=== PATIENT | female | born 1945 | race Caucasian/White ===

== ENCOUNTER 2023-06-22 15:50 | Inpatient (IN) | payer MEDICARE ==
[2023-06-22 16:44] LABS: Bacteria/HPF 2+ HPF (None Seen); Bilirubin Negative (Negative); Blood, Urine 1+ (Negative); CAUTI Indications for Culture Pelvic or flank pain; Clarity Extra Turbid (Clear); Glucose, Urine (Dipstick) Normal (Negative); Ketone, Urine 20 mg/dL (Negative); Leukocyte 500 Leu/uL (Negative); Nitrite Negative (Negative); Protein, Urine (Dipstick) 50 mg/dL (Neg-Trace); RBC/HPF 0-3 HPF (0-3); Specific Gravity, Urine 1.013 (1.002-1.036); Squamous Epithelial None Seen HPF (0-3); Urobilinogen Normal mg/dL (Less than 2); WBC/HPF Greater than 50 HPF (0-3)
[2023-06-22 16:52] LABS: Urine Culture Reflex Yes Yes
[2023-06-22 18:38] LABS: #Monocytes 0.5 thou/uL (0.11-0.59); #Neutrophils 9.7 thou/uL (1.40-6.50); %Basophils 0.3 % (0.0-1.0); %Eosinophils 0.2 % (0.0-10.0); %Lymphocytes 5.5 % (21.0-51.0); %Monocytes 4.7 % (0.0-10.0); %Neutrophils 88.7 % (42.0-75.0); Hematocrit 43.3 % (36.0-47.0); Hemoglobin 14.5 g/dL (12.0-16.0); Mean Corpuscular HGB CONC 33.5 g/dL (32.0-36.0); Mean Corpuscular Hemoglobin 31.8 pg (27.0-31.0); Mean Platelet Volume 9.6 fL (7.4-10.4); Platelet Count 248 10x3/uL (130-400); RBC Distribution Width 15.5 % (11.5-14.5); Red Blood Cell (RBC) Count 4.56 mill/uL (4.20-5.40); White Blood Cell (WBC) Count 10.9 10x3/uL (4.8-10.8)
[2023-06-22 18:47] LABS: INR-International Normal Ratio 1.2; Prothrombin Time 15.5 sec (12.0-14.7)
[2023-06-22 18:48] LABS: PTT 29.8 sec (22.9-36.1)
[2023-06-22] MEDS ORDERED: Glucagon 1 MG/ML KIT IM PRN (18:51)
[2023-06-22] MEDS ORDERED: Methocarbamol 1 GM in Sodium Chloride 0.9% 100 ML IVPB PRN (18:51)
[2023-06-22] MEDS ORDERED: Dextrose 50% Abboject 50 ML SYRINGE SLOW IVP PRN (18:51)
[2023-06-22] MEDS ORDERED: Morphine 2 MG/ML VIAL SLOW IVP PRN (18:51)
[2023-06-22] MEDS ORDERED: Dextrose 5% in Water 1,000 ML IV PRN (18:51)
[2023-06-22] MEDS ORDERED: Acetaminophen 325 MG TAB PO PRN (18:51)
[2023-06-22] MEDS ORDERED: hydrALAZINE 20 MG/ML VIAL SLOW IVP PRN (18:51)
[2023-06-22] MEDS ORDERED: Ondansetron PF 4 MG/2 ML Vial IVP PRN (18:51)
[2023-06-22 19:08] LABS: ALT (SGPT) Less than 7 U/L (8-55); AST (SGOT) 18 U/L (5-34); Albumin 3.9 g/dL (3.4-4.8); Alkaline Phosphatase 89 U/L (40-110); Anion Gap 16 mmol/L (10-20); BUN (Urea Nitrogen) 25 mg/dL (9.8-20.1); Calc. Creatinine Clearance 0 mL/min (70-130); Calcium 9.2 mg/dL (7.8-10.44); Carbon Dioxide 18 mmol/L (23-31); Chloride 100 mmol/L (98-107); Estimated GFR 64; Globulin 3.1 g/dL (2.4-3.5); Glucose 119 mg/dL (83-110); Potassium 3.7 mmol/L (3.5-5.1); Sodium 130 mmol/L (136-145)
[2023-06-22] MEDS ORDERED: Famotidine/PF 20 mg/2ml Vial SLOW IVP SCH (21:00)
[2023-06-23 00:18] VITALS: BMI 22.1
[2023-06-23] MEDS ORDERED: Clindamycin/D5W 900 MG in Premix 1 BAG IVPB SCH ×2 (07:15→23:15)
[2023-06-23 09:17] LABS: #Eosinphils 0.1 thou/uL (0.0-0.7); #Monocytes 0.5 thou/uL (0.11-0.59); #Neutrophils 6.5 thou/uL (1.40-6.50); %Basophils 0.4 % (0.0-1.0); %Eosinophils 0.9 % (0.0-10.0); %Lymphocytes 13.9 % (21.0-51.0); %Monocytes 5.6 % (0.0-10.0); Hemoglobin 13.1 g/dL (12.0-16.0); Mean Corpuscular HGB CONC 33.6 g/dL (32.0-36.0); Mean Corpuscular Hemoglobin 31.7 pg (27.0-31.0); Mean Corpuscular Volume 94.4 fl (78.0-98.0); Mean Platelet Volume 9.7 fL (7.4-10.4); Platelet Count 221 10x3/uL (130-400); RBC Distribution Width 15.7 % (11.5-14.5); Red Blood Cell (RBC) Count 4.13 mill/uL (4.20-5.40); White Blood Cell (WBC) Count 8.2 10x3/uL (4.8-10.8)
[2023-06-23 09:38] LABS: ALT (SGPT) Less than 7 U/L (8-55); AST (SGOT) 18 U/L (5-34); Albumin 3.7 g/dL (3.4-4.8); Alkaline Phosphatase 80 U/L (40-110); Anion Gap 14 mmol/L (10-20); BUN (Urea Nitrogen) 31 mg/dL (9.8-20.1); Bilirubin, Total 0.9 mg/dL (0.2-1.2); Calc. Creatinine Clearance 50 mL/min (70-130); Calcium 8.8 mg/dL (7.8-10.44); Carbon Dioxide 24 mmol/L (23-31); Chloride 98 mmol/L (98-107); Estimated GFR 66; Globulin 2.9 g/dL (2.4-3.5); Glucose 99 mg/dL (83-110); Potassium 3.6 mmol/L (3.5-5.1); Protein, Total 6.6 g/dL (5.8-8.1); Sodium 132 mmol/L (136-145)
[2023-06-23] MEDS ORDERED: Clindamycin/D5W 900 mg/50 ml Premix Bag ONE (13:49)
[2023-06-23] MEDS ORDERED: Phenylephrine 40 MG/NS 250 ML 250 ML ONE (13:52)
[2023-06-23] MEDS ORDERED: PROPOFOL 20 ML ONE (13:54)
[2023-06-23] MEDS ORDERED: Lidocaine 2% PF 5 ML VIAL ONE (13:54)
[2023-06-23] MEDS ORDERED: CEFAZOLIN 1 GM VIAL ONE (14:05)
[2023-06-23] MEDS ORDERED: fentaNYL 50 mcg/mL 1 mL Vial ONE ×2 (14:29→15:36)
[2023-06-23] MEDS ORDERED: Ondansetron PF 4 MG/2 ML Vial ONE (14:36)
[2023-06-23] MEDS ORDERED: Dexamethasone 4 mg/ml Vial ONE (14:36)
[2023-06-23] MEDS ORDERED: Ketorolac Tromethamine 30 MG (1 mL) VIAL ONE (14:44)
[2023-06-23] MEDS ORDERED: Promethazine HCl 25 MG/ML VIAL IM PRN (15:30)
[2023-06-23] MEDS ORDERED: Ondansetron HCl/PF 4 MG/2 ML Vial IVP PRN (15:30)
[2023-06-23] MEDS: Sodium Chloride 0.9% 1,000 ML IV SCH ×2 (20:10→20:44)
[2023-06-23] MEDS: Famotidine/PF 20 mg/2ml Vial SLOW IVP SCH (20:46)
[2023-06-24] MEDS: Clindamycin/D5W 900 MG in Premix 1 BAG IVPB SCH ×2 (00:49→09:07)
[2023-06-24] MEDS: Sodium Chloride 0.9% 1,000 ML IV SCH ×2 (09:07→19:15)
[2023-06-24] MEDS: Ketorolac Tromethamine 30 MG (1 mL) VIAL IVP PRN ×2 (09:07→15:47)
[2023-06-24 09:28] LABS: #Monocytes 0.5 thou/uL (0.11-0.59); #Neutrophils 5.9 thou/uL (1.40-6.50); %Basophils 0.1 % (0.0-1.0); %Eosinophils 0.1 % (0.0-10.0); %Lymphocytes 10.1 % (21.0-51.0); %Neutrophils 82.3 % (42.0-75.0); Hematocrit 31.3 % (36.0-47.0); Hemoglobin 10.6 g/dL (12.0-16.0); Mean Corpuscular HGB CONC 33.9 g/dL (32.0-36.0); Mean Corpuscular Hemoglobin 32.1 pg (27.0-31.0); Mean Corpuscular Volume 94.8 fl (78.0-98.0); Mean Platelet Volume 9.8 fL (7.4-10.4); Platelet Count 189 10x3/uL (130-400); RBC Distribution Width 15.5 % (11.5-14.5); White Blood Cell (WBC) Count 7.1 10x3/uL (4.8-10.8)
[2023-06-24] MEDS: Famotidine/PF 20 mg/2ml Vial SLOW IVP SCH (21:04)
[2023-06-24] MEDS: Enoxaparin 30 MG (0.3 mL) SYRINGE SC SCH (21:08)
[2023-06-25] MEDS: Sodium Chloride 0.9% 1,000 ML IV SCH ×2 (05:12→16:07)
[2023-06-25] MEDS: Enoxaparin 30 MG (0.3 mL) SYRINGE SC SCH ×2 (09:45→21:21)
[2023-06-25] MEDS: Ketorolac Tromethamine 30 MG (1 mL) VIAL IVP PRN (09:45)
[2023-06-25] MEDS: Famotidine/PF 20 mg/2ml Vial SLOW IVP SCH (21:22)
[2023-06-26] MEDS: Sodium Chloride 0.9% 1,000 ML IV SCH ×3 (02:15→18:22)
[2023-06-26] MEDS: Enoxaparin 30 MG (0.3 mL) SYRINGE SC SCH ×2 (09:17→22:15)
[2023-06-26] MEDS: Ketorolac Tromethamine 30 MG (1 mL) VIAL IVP PRN (09:18)
[2023-06-26] MEDS: Famotidine/PF 20 mg/2ml Vial SLOW IVP SCH ×2 (22:15→22:28)
[2023-06-26] MEDS ORDERED: Labetalol HCl 100 MG/20 ML VIAL SLOW IVP SCH (23:15)
[2023-06-26] MEDS: Labetalol HCl 100 MG/20 ML VIAL SLOW IVP PRN (23:57)
[2023-06-27] MEDS: Sodium Chloride 0.9% 1,000 ML IV SCH (04:25)
[2023-06-27 05:15] LABS: #Eosinphils 0.1 thou/uL (0.0-0.7); #Monocytes 0.2 thou/uL (0.11-0.59); %Basophils 0.8 % (0.0-1.0); %Eosinophils 2.3 % (0.0-10.0); %Lymphocytes 15.7 % (21.0-51.0); %Monocytes 4.5 % (0.0-10.0); %Neutrophils 76.3 % (42.0-75.0); Hematocrit 26.6 % (36.0-47.0); Hemoglobin 9.1 g/dL (12.0-16.0); Mean Corpuscular HGB CONC 34.2 g/dL (32.0-36.0); Mean Corpuscular Hemoglobin 32.5 pg (27.0-31.0); Mean Platelet Volume 9.6 fL (7.4-10.4); Platelet Count 190 10x3/uL (130-400); RBC Distribution Width 15.4 % (11.5-14.5); White Blood Cell (WBC) Count 5.3 10x3/uL (4.8-10.8)
[2023-06-27 05:48] LABS: ALT (SGPT) Less than 7 U/L (8-55); AST (SGOT) 13 U/L (5-34); Albumin 2.6 g/dL (3.4-4.8); Alkaline Phosphatase 69 U/L (40-110); Anion Gap 11 mmol/L (10-20); BUN (Urea Nitrogen) 8 mg/dL (9.8-20.1); Bilirubin, Total 0.7 mg/dL (0.2-1.2); Calc. Creatinine Clearance 75 mL/min (70-130); Calcium 7.3 mg/dL (7.8-10.44); Carbon Dioxide 21 mmol/L (23-31); Chloride 102 mmol/L (98-107); Estimated GFR 91; Globulin 2.2 g/dL (2.4-3.5); Glucose 96 mg/dL (83-110); Potassium 3.2 mmol/L (3.5-5.1); Protein, Total 4.8 g/dL (5.8-8.1); Sodium 131 mmol/L (136-145)
[2023-06-27] MEDS: Enoxaparin 30 MG (0.3 mL) SYRINGE SC SCH ×2 (09:27→23:14)
[2023-06-27] MEDS: Labetalol HCl 100 MG/20 ML VIAL SLOW IVP PRN (10:40)
[2023-06-27] MEDS: Famotidine/PF 20 mg/2ml Vial SLOW IVP SCH (23:15)
[2023-06-28] MEDS: Enoxaparin 30 MG (0.3 mL) SYRINGE SC SCH ×2 (09:02→22:17)
[2023-06-28] MEDS: Famotidine/PF 20 mg/2ml Vial SLOW IVP SCH ×2 (09:03→22:18)
[2023-06-28] MEDS ORDERED: traMADol HCl 50 MG TAB PO PRN (17:28)
[2023-06-28] MEDS: traMADol HCl 50 MG TAB PO SCH (18:03)
[2023-06-28] MEDS: Acetaminophen 500 MG TAB PO SCH (18:03)
[2023-06-28] MEDS: Ibuprofen 200 MG TAB PO SCH (18:03)
[2023-06-29] MEDS: traMADol HCl 50 MG TAB PO SCH ×5 (00:45→23:55)
[2023-06-29] MEDS: Acetaminophen 500 MG TAB PO SCH ×5 (00:45→23:55)
[2023-06-29] MEDS: Ibuprofen 200 MG TAB PO SCH ×3 (03:26→17:15)
[2023-06-29] MEDS: Enoxaparin 30 MG (0.3 mL) SYRINGE SC SCH ×2 (08:59→20:57)
[2023-06-29] MEDS: Famotidine/PF 20 mg/2ml Vial SLOW IVP SCH ×2 (08:59→20:57)
[2023-06-30] MEDS: Ibuprofen 200 MG TAB PO SCH ×2 (01:48→08:57)
[2023-06-30 05:29] VITALS: TEMP 97.6
[2023-06-30] MEDS: Acetaminophen 500 MG TAB PO SCH ×2 (05:54→11:56)
[2023-06-30] MEDS: traMADol HCl 50 MG TAB PO SCH ×2 (05:54→11:57)
[2023-06-30 08:38] VITALS: BP 150/69
[2023-06-30] MEDS: Famotidine/PF 20 mg/2ml Vial SLOW IVP SCH (08:57)
[2023-06-30] MEDS: Enoxaparin 30 MG (0.3 mL) SYRINGE SC SCH (08:57)
== END 2023-06-30 13:56 | DRG 522 ==
LOC: ERS 15:50 → ERHOLD 18:22 → MSONC 20:30
PROVIDERS: ADMIT Specialist; ATTEND Specialist
PROC: 0SRR0JZ Replacement of Right Hip Joint, Femoral Surface with Synthetic Substitute, Open Approach (ICD-10-PCS; principal; 2023-06-23)
PROC: 3E033XZ Introduction of Vasopressor into Peripheral Vein, Percutaneous Approach (ICD-10-PCS; 2023-06-23)
DX: S72.141A Displaced intertrochanteric fracture of right femur, initial encounter for closed fracture (principal); D62 Acute posthemorrhagic anemia; Z79.899 Other long term (current) drug therapy; W18.30XA Fall on same level, unspecified, initial encounter; K80.20 Calculus of gallbladder without cholecystitis without obstruction
CPT/HCPCS: 36415; 72170; 76705; 80053; 81001; 85025; 85610; 85730; 87077; 87086; 87186; 93005; C1713; C1776; G0390; J0360; J0690; J1100; J1885; J2001; J2405; J2704; J3010; J3490; J7050; S0028

== ENCOUNTER 2024-03-29 17:16 | Inpatient (IN) | payer MEDICARE ==
[2024-03-29 21:03] VITALS: BMI 19.3
[2024-03-29 22:58] LABS: Anion Gap 11 mmol/L (10-20); BUN (Urea Nitrogen) 26 mg/dL (9.8-20.1); Calc. Creatinine Clearance 49 mL/min (70-130); Carbon Dioxide 33 mmol/L (23-31); Chloride 91 mmol/L (98-107); Estimated GFR 76; Glucose 108 mg/dL (83-110); Magnesium 2.1 mg/dL (1.6-2.6); Potassium 2.8 mmol/L (3.5-5.1); Sodium 132 mmol/L (136-145)
[2024-03-29 23:05] LABS: Troponin I 0.253 ng/mL (< 0.028)
[2024-03-30] MEDS ORDERED: Ipratropium/Albuterol 3 ML NEB NEB PRN (01:06)
[2024-03-30] MEDS: Potassium Chloride 20 MEQ in Premix 1 BAG IVPB SCH (03:16)
[2024-03-30 05:20] LABS: #Basophils 0.03 10x3/uL (0.0-0.2); %Basophils 0.3 % (0.0-1.0); %Eosinophils 1.5 % (0.0-10.0); %Lymphocytes 21.6 % (21.0-51.0); %Monocytes 6.9 % (0.0-10.0); %Neutrophils 69.4 % (42.0-75.0); Hematocrit 25.6 % (36.0-47.0); Hemoglobin 8.7 g/dL (12.0-16.0); Mean Corpuscular Hemoglobin 32.2 pg (27.0-31.0); Mean Corpuscular Volume 94.8 fL (78.0-98.0); Mean Platelet Volume 9.8 fL (7.4-10.4); Platelet Count 246 10x3/uL (130-400); RBC Distribution Width 13.2 % (11.5-14.5)
[2024-03-30 05:51] LABS: Troponin I 0.165 ng/mL (< 0.028)
[2024-03-30] MEDS: Furosemide 40 MG (4 mL) VIAL SLOW IVP SCH (06:11)
[2024-03-30] MEDS: Potassium Bicarbonate/Cit Ac 20 MEQ TAB PO SCH (06:11)
[2024-03-30 09:01] LABS: ALT (SGPT) 13 U/L (8-55); AST (SGOT) 16 U/L (5-34); Albumin 2.9 g/dL (3.4-4.8); Alkaline Phosphatase 81 U/L (40-110); Anion Gap 12 mmol/L (10-20); BUN (Urea Nitrogen) 28 mg/dL (9.8-20.1); Bilirubin, Total 0.6 mg/dL (0.2-1.2); Calc. Creatinine Clearance 46 mL/min (70-130); Calcium 8.4 mg/dL (7.8-10.44); Carbon Dioxide 31 mmol/L (23-31); Chloride 90 mmol/L (98-107); Estimated GFR 71; Globulin 2.9 g/dL (2.4-3.5); Glucose 116 mg/dL (83-110); Potassium 3.3 mmol/L (3.5-5.1); Protein, Total 5.8 g/dL (5.8-8.1); Sodium 130 mmol/L (136-145)
[2024-03-30] MEDS: Aspirin 81 mg Enteric Coated Tablet PO SCH (09:46)
[2024-03-30] MEDS: Carvedilol 6.25 MG TAB PO SCH (09:46)
[2024-03-30] MEDS: Heparin 5,000 UNITS/ML VIAL SC SCH (09:46)
[2024-03-30] MEDS: Atorvastatin Calcium 10 MG TAB PO SCH (21:16)
[2024-03-31] MEDS ORDERED: Communication Order-Pharmacy FS SCH (07:45)
[2024-03-31] MEDS: Losartan 25 MG TAB PO SCH (09:53)
[2024-03-31] MEDS: Sodium Chloride 0.9% 1,000 ML IV SCH (09:54)
[2024-03-31] MEDS: Calcium Carbonate 500 MG ChewTAB PO PRN (16:01)
[2024-04-01 05:40] LABS: #Basophils 0.05 10x3/uL (0.0-0.2); %Basophils 0.7 % (0.0-1.0); %Eosinophils 3.6 % (0.0-10.0); %Lymphocytes 21.8 % (21.0-51.0); %Monocytes 9.7 % (0.0-10.0); %Neutrophils 63.9 % (42.0-75.0); Hematocrit 27.9 % (36.0-47.0); Hemoglobin 9.2 g/dL (12.0-16.0); Mean Corpuscular Hemoglobin 32.3 pg (27.0-31.0); Mean Corpuscular Volume 97.9 fL (78.0-98.0); Mean Platelet Volume 10.2 fL (7.4-10.4); Platelet Count 268 10x3/uL (130-400); RBC Distribution Width 13.2 % (11.5-14.5); Red Blood Cell (RBC) Count 2.85 mill/uL (4.20-5.40)
[2024-04-01 06:34] LABS: Anion Gap 12 mmol/L (10-20); BUN (Urea Nitrogen) 35 mg/dL (9.8-20.1); Calc. Creatinine Clearance 44 mL/min (70-130); Calcium 8.4 mg/dL (7.8-10.44); Carbon Dioxide 30 mmol/L (23-31); Chloride 93 mmol/L (98-107); Estimated GFR 68; Glucose 95 mg/dL (83-110); Potassium 3.2 mmol/L (3.5-5.1); Sodium 132 mmol/L (136-145)
[2024-04-01] MEDS: Potassium Chloride 20 MEQ TAB PO SCH (17:56)
[2024-04-02 05:08] LABS: #Basophils 0.04 10x3/uL (0.0-0.2); %Basophils 0.5 % (0.0-1.0); %Lymphocytes 25.9 % (21.0-51.0); %Monocytes 9.1 % (0.0-10.0); %Neutrophils 60.1 % (42.0-75.0); Hematocrit 27.3 % (36.0-47.0); Hemoglobin 9.1 g/dL (12.0-16.0); Mean Corpuscular HGB CONC 33.3 g/dL (32.0-36.0); Mean Corpuscular Hemoglobin 31.8 pg (27.0-31.0); Mean Corpuscular Volume 95.5 fL (78.0-98.0); Mean Platelet Volume 9.9 fL (7.4-10.4); Platelet Count 279 10x3/uL (130-400); RBC Distribution Width 13.3 % (11.5-14.5); Red Blood Cell (RBC) Count 2.86 mill/uL (4.20-5.40)
[2024-04-02 05:25] LABS: Anion Gap 13 mmol/L (10-20); BUN (Urea Nitrogen) 41 mg/dL (9.8-20.1); Calc. Creatinine Clearance 43 mL/min (70-130); Calcium 8.4 mg/dL (7.8-10.44); Carbon Dioxide 31 mmol/L (23-31); Chloride 94 mmol/L (98-107); Estimated GFR 65; Glucose 106 mg/dL (83-110); Potassium 3.5 mmol/L (3.5-5.1); Sodium 134 mmol/L (136-145)
[2024-04-02] MEDS: Sodium Chloride 0.9% 1,000 ML IV SCH ×2 (05:53→15:59)
[2024-04-02] MEDS: Empagliflozin 10 MG TAB PO SCH (09:01)
[2024-04-02] MEDS ORDERED: Iopamidol 370 76% 100 ML VIAL ONE (10:11)
[2024-04-02] MEDS ORDERED: Midazolam HCl 2 mg/2 ml Vial ONE (11:58)
[2024-04-02] MEDS ORDERED: Verapamil 5 MG/2 ML VIAL ONE (11:58)
[2024-04-02] MEDS ORDERED: Heparin 10,000 UNITS/ 10 ML VIAL ONE (11:58)
[2024-04-02] MEDS ORDERED: fentaNYL 50 mcg/mL 1 mL Vial ONE (11:58)
[2024-04-02] MEDS ORDERED: Adenosine 6 mg (2 mL) VIAL ONE (11:58)
[2024-04-02] MEDS ORDERED: Nitroglycerin 50 MG/250 ML BOT 250 ML ONE (11:59)
[2024-04-03 04:44] LABS: #Basophils 0.05 10x3/uL (0.0-0.2); %Basophils 0.7 % (0.0-1.0); %Eosinophils 5.2 % (0.0-10.0); %Lymphocytes 24.5 % (21.0-51.0); %Monocytes 10.6 % (0.0-10.0); %Neutrophils 58.6 % (42.0-75.0); Hematocrit 26.8 % (36.0-47.0); Hemoglobin 8.8 g/dL (12.0-16.0); Mean Corpuscular HGB CONC 32.8 g/dL (32.0-36.0); Mean Corpuscular Hemoglobin 32.2 pg (27.0-31.0); Mean Corpuscular Volume 98.2 fL (78.0-98.0); Platelet Count 261 10x3/uL (130-400); RBC Distribution Width 13.4 % (11.5-14.5); Red Blood Cell (RBC) Count 2.73 mill/uL (4.20-5.40)
[2024-04-03 05:35] LABS: ALT (SGPT) 10 U/L (8-55); AST (SGOT) 16 U/L (5-34); Albumin 2.7 g/dL (3.4-4.8); Alkaline Phosphatase 73 U/L (40-110); Anion Gap 12 mmol/L (10-20); BUN (Urea Nitrogen) 30 mg/dL (9.8-20.1); Bilirubin, Total 0.3 mg/dL (0.2-1.2); Calc. Creatinine Clearance 46 mL/min (70-130); Calcium 8.4 mg/dL (7.8-10.44); Carbon Dioxide 27 mmol/L (23-31); Chloride 103 mmol/L (98-107); Estimated GFR 70; Globulin 2.6 g/dL (2.4-3.5); Glucose 93 mg/dL (83-110); Potassium 3.7 mmol/L (3.5-5.1); Protein, Total 5.3 g/dL (5.8-8.1); Sodium 138 mmol/L (136-145)
[2024-04-03 06:06] VITALS: TEMP 97.7
[2024-04-03] MEDS ORDERED: Clopidogrel Bisulfate 75 MG TAB PO SCH (09:00)
[2024-04-03] MEDS: Aspirin Chewable 81 MG TAB PO SCH (09:29)
[2024-04-03] MEDS: Clopidogrel Bisulfate 75 MG TAB PO SCH (09:30)
[2024-04-03 10:55] VITALS: BP 142/82
== END 2024-04-03 12:30 | disposition home or self-care (01) | DRG 280 ==
LOC: INTOOBSV 20:35 → 2NO 20:35 → OBSVTOIN 03-31 09:11
PROVIDERS: ADMIT Internal Medicine; ATTEND Internal Medicine
PROC: 4A023N7 Measurement of Cardiac Sampling and Pressure, Left Heart, Percutaneous Approach (ICD-10-PCS; principal; 2024-04-02)
PROC: B2111ZZ Fluoroscopy of Multiple Coronary Arteries using Low Osmolar Contrast (ICD-10-PCS; 2024-04-02)
PROC: B240ZZ3 Ultrasonography of Single Coronary Artery, Intravascular (ICD-10-PCS; 2024-04-02)
DX: I11.0 Hypertensive heart disease with heart failure (principal); I50.41 Acute combined systolic (congestive) and diastolic (congestive) heart failure; I21.A1 Myocardial infarction type 2; J96.01 Acute respiratory failure with hypoxia; I42.9 Cardiomyopathy, unspecified; K44.9 Diaphragmatic hernia without obstruction or gangrene; Z96.641 Presence of right artificial hip joint; Z88.0 Allergy status to penicillin; Z88.8 Allergy status to other drugs, medicaments and biological substances; Z90.710 Acquired absence of both cervix and uterus; I16.0 Hypertensive urgency; E87.6 Hypokalemia; D63.1 Anemia in chronic kidney disease
CPT/HCPCS: 36415; 80048; 80053; 83735; 84443; 84484; 85025; 85347; 92978; 93005; 93010; 93306; 93458; 93798; 96372; 96374; 96375; 96376; 99152; 99153; C1753; C1769; C1887; C1894; G0378; J0153; J1644; J1940; J2250; J3010; J3480; J7030

== ENCOUNTER 2024-04-06 09:22 | Observation (INO) | payer MEDICARE ==
[2024-04-06] MEDS ORDERED: Acetaminophen 325 MG TAB PO PRN (10:32)
[2024-04-06] MEDS ORDERED: Ondansetron ODT 4 MG TAB PO PRN (10:32)
[2024-04-06 10:54] LABS: Troponin I 0.079 ng/mL (< 0.028)
[2024-04-06 11:09] VITALS: BMI 18.8
[2024-04-06 13:12] LABS: Troponin I 0.087 ng/mL (< 0.028)
[2024-04-06] MEDS: Furosemide 20 MG (2 mL) VIAL SLOW IVP SCH (14:46)
[2024-04-06 16:02] LABS: Troponin I 0.071 ng/mL (< 0.028)
[2024-04-06] MEDS: Famotidine 20 MG TAB PO SCH (20:58)
[2024-04-06] MEDS: Carvedilol 3.125 MG TAB PO SCH (20:58)
[2024-04-06] MEDS: Atorvastatin Calcium 10 MG TAB PO SCH (20:58)
[2024-04-06] MEDS ORDERED: Carvedilol 6.25 MG TAB PO SCH (21:00)
[2024-04-07 05:29] LABS: #Basophils 0.05 10x3/uL (0.0-0.2); %Basophils 0.7 % (0.0-1.0); %Eosinophils 5.5 % (0.0-10.0); %Lymphocytes 24.5 % (21.0-51.0); %Monocytes 7.7 % (0.0-10.0); %Neutrophils 61.3 % (42.0-75.0); Hematocrit 30.6 % (36.0-47.0); Hemoglobin 9.9 g/dL (12.0-16.0); Mean Corpuscular HGB CONC 32.4 g/dL (32.0-36.0); Mean Corpuscular Volume 95.9 fL (78.0-98.0); Mean Platelet Volume 10.3 fL (7.4-10.4); Platelet Count 338 10x3/uL (130-400); RBC Distribution Width 13.2 % (11.5-14.5); Red Blood Cell (RBC) Count 3.19 mill/uL (4.20-5.40)
[2024-04-07 05:46] LABS: Anion Gap 10 mmol/L (10-20); BUN (Urea Nitrogen) 32 mg/dL (9.8-20.1); Calc. Creatinine Clearance 38 mL/min (70-130); Calcium 8.8 mg/dL (7.8-10.44); Carbon Dioxide 28 mmol/L (23-31); Chloride 102 mmol/L (98-107); Estimated GFR 57; Glucose 98 mg/dL (83-110); Magnesium 2.2 mg/dL (1.6-2.6); Potassium 3.2 mmol/L (3.5-5.1); Sodium 137 mmol/L (136-145)
[2024-04-07] MEDS: Empagliflozin 10 MG TAB PO SCH (08:24)
[2024-04-07] MEDS: Aspirin Chewable 81 MG TAB PO SCH (08:24)
[2024-04-07] MEDS: Enoxaparin 40 MG (0.4 mL) SYRINGE SC SCH (08:25)
[2024-04-07] MEDS: Clopidogrel Bisulfate 75 MG TAB PO SCH (08:26)
[2024-04-07] MEDS: Losartan 25 MG TAB PO SCH (08:29)
[2024-04-07] MEDS: FLU (Fluad Triv) TS24-25 (65UP)/MF59C/PF 45 MCG/0.5 ML Syringe IM ONE (09:23)
[2024-04-07] MEDS: Potassium Chloride 20 MEQ TAB PO SCH (11:36)
[2024-04-07] MEDS: Furosemide 20 MG (2 mL) VIAL SLOW IVP SCH (13:48)
[2024-04-07 16:29] VITALS: BP 155/78; TEMP 97.9
[2024-04-08] MEDS ORDERED: Famotidine 20 MG TAB PO SCH (09:00)
== END 2024-04-07 18:30 | disposition home or self-care (01) ==
LOC: ERS 09:22 → ERHOLD 09:49 → 2NO 12:21
PROVIDERS: ADMIT Internal Medicine; ATTEND Internal Medicine
DX: J96.01 Acute respiratory failure with hypoxia (principal); I42.9 Cardiomyopathy, unspecified; I11.0 Hypertensive heart disease with heart failure; I50.43 Acute on chronic combined systolic (congestive) and diastolic (congestive) heart failure; I25.10 Atherosclerotic heart disease of native coronary artery without angina pectoris; E87.6 Hypokalemia; D64.9 Anemia, unspecified; I10 Essential (primary) hypertension; K44.9 Diaphragmatic hernia without obstruction or gangrene; I25.2 Old myocardial infarction; Z79.82 Long term (current) use of aspirin; Z79.899 Other long term (current) drug therapy; Z79.02 Long term (current) use of antithrombotics/antiplatelets; Z90.710 Acquired absence of both cervix and uterus; Z90.89 Acquired absence of other organs; Z96.649 Presence of unspecified artificial hip joint; Z88.0 Allergy status to penicillin; Z88.5 Allergy status to narcotic agent; Z88.1 Allergy status to other antibiotic agents
CPT/HCPCS: 71045; 80048; 82962 ×2; 83735; 83880; 84484; 85025; 93005; 93798; 96372; 96374; 96376; 99285; G0378 ×3; J1650; J1940 ×2; 36415; 36416

== ENCOUNTER 2024-07-12 05:31 | Observation (INO) | payer MEDICARE ==
[2024-07-12 05:55] VITALS: BMI 18.3
[2024-07-12] MEDS ORDERED: Ondansetron PF 4 MG/2 ML Vial IVP PRN (06:53)
[2024-07-12] MEDS ORDERED: Acetaminophen 325 MG TAB PO PRN (06:53)
[2024-07-12 07:40] LABS: #Basophils 0.07 10x3/uL (0.0-0.2); %Basophils 0.8 % (0.0-1.0); %Eosinophils 1.2 % (0.0-10.0); %Lymphocytes 15.6 % (21.0-51.0); %Monocytes 8.2 % (0.0-10.0); %Neutrophils 73.8 % (42.0-75.0); Hematocrit 32.1 % (36.0-47.0); Hemoglobin 10.4 g/dL (12.0-16.0); Mean Corpuscular HGB CONC 32.4 g/dL (32.0-36.0); Mean Corpuscular Hemoglobin 28.2 pg (27.0-31.0); Mean Platelet Volume 9.2 fL (7.4-10.4); Platelet Count 343 10x3/uL (130-400); RBC Distribution Width 14.3 % (11.5-14.5); Red Blood Cell (RBC) Count 3.69 mill/uL (4.20-5.40)
[2024-07-12 08:05] LABS: Anion Gap 14 mmol/L (10-20); BUN (Urea Nitrogen) 28 mg/dL (9.8-20.1); Calc. Creatinine Clearance 40 mL/min (70-130); Calcium 9.2 mg/dL (7.8-10.44); Carbon Dioxide 33 mmol/L (23-31); Chloride 93 mmol/L (98-107); Estimated GFR 64; Glucose 98 mg/dL (83-110); Potassium 2.9 mmol/L (3.5-5.1); Sodium 137 mmol/L (136-145)
[2024-07-12 08:28] LABS: Magnesium 1.5 mg/dL (1.6-2.6)
[2024-07-12 08:32] LABS: Troponin I Less than 0.010 ng/mL (< 0.028)
[2024-07-12] MEDS: Potassium Chloride 20 MEQ TAB PO SCH ×3 (09:06→16:58)
[2024-07-12] MEDS: Aspirin 81 mg Enteric Coated Tablet PO SCH (09:07)
[2024-07-12] MEDS: Clopidogrel Bisulfate 75 MG TAB PO SCH (09:07)
[2024-07-12] MEDS: Magnesium 2 GM/50 ML(in water) 2 GM in Premix 1 BAG IVPB SCH (09:07)
[2024-07-12] MEDS: Empagliflozin 10 MG TAB PO SCH (09:07)
[2024-07-12] MEDS: Losartan 25 MG TAB PO SCH (09:07)
[2024-07-12] MEDS: Carvedilol 6.25 MG TAB PO SCH (09:07)
[2024-07-12] MEDS: Furosemide 40 MG (4 mL) VIAL SLOW IVP SCH (09:07)
[2024-07-12] MEDS: Enoxaparin 40 MG (0.4 mL) SYRINGE SC SCH (09:08)
[2024-07-12] MEDS: Pantoprazole 40 MG VIAL IVP SCH (11:21)
[2024-07-12] MEDS: Potassium Chloride 20 MEQ in Premix 1 BAG IVPB SCH ×2 (11:22→17:06)
[2024-07-12] MEDS ORDERED: Carvedilol 6.25 MG TAB PO SCH (17:00)
[2024-07-12] MEDS ORDERED: Magnesium Oxide 400 MG TAB PO SCH (21:00)
[2024-07-13 05:08] LABS: #Basophils 0.06 10x3/uL (0.0-0.2); %Basophils 0.8 % (0.0-1.0); %Eosinophils 2.9 % (0.0-10.0); %Lymphocytes 23.2 % (21.0-51.0); %Monocytes 10.1 % (0.0-10.0); %Neutrophils 62.7 % (42.0-75.0); Hematocrit 29.8 % (36.0-47.0); Hemoglobin 9.9 g/dL (12.0-16.0); Mean Corpuscular HGB CONC 33.2 g/dL (32.0-36.0); Mean Corpuscular Hemoglobin 28.5 pg (27.0-31.0); Mean Corpuscular Volume 85.9 fL (78.0-98.0); Mean Platelet Volume 9.5 fL (7.4-10.4); Platelet Count 314 10x3/uL (130-400); RBC Distribution Width 14.6 % (11.5-14.5); Red Blood Cell (RBC) Count 3.47 mill/uL (4.20-5.40)
[2024-07-13 05:32] LABS: Anion Gap 11 mmol/L (10-20); BUN (Urea Nitrogen) 30 mg/dL (9.8-20.1); Calc. Creatinine Clearance 45 mL/min (70-130); Calcium 8.8 mg/dL (7.8-10.44); Carbon Dioxide 28 mmol/L (23-31); Chloride 99 mmol/L (98-107); Estimated GFR 69; Glucose 93 mg/dL (83-110); Potassium 3.9 mmol/L (3.5-5.1); Sodium 134 mmol/L (136-145)
[2024-07-13 12:08] VITALS: TEMP 97.6
[2024-07-13 17:18] VITALS: BP 119/78
== END 2024-07-13 19:45 | disposition home or self-care (01) ==
LOC: OBS 05:31
PROVIDERS: ADMIT Surgery; ATTEND Family Medicine
PROC: B24BZZZ Ultrasonography of Heart with Aorta (ICD-10-PCS; principal; 2024-07-13)
DX: I11.0 Hypertensive heart disease with heart failure (principal); I50.43 Acute on chronic combined systolic (congestive) and diastolic (congestive) heart failure; I25.10 Atherosclerotic heart disease of native coronary artery without angina pectoris; E83.42 Hypomagnesemia; D64.9 Anemia, unspecified; Z96.641 Presence of right artificial hip joint; Z90.89 Acquired absence of other organs; Z90.710 Acquired absence of both cervix and uterus; Z88.0 Allergy status to penicillin; Z88.1 Allergy status to other antibiotic agents
CPT/HCPCS: 80048 ×2; 83735; 83880; 84484; 85025 ×2; 93005; 93306; 96372 ×2; 96374; 96375; 96376; G0378 ×2; J1650 ×2; J1940; J2470; J3475; J3480; 36415; 93010

== ENCOUNTER 2024-08-23 08:44 | Day surgery (SDC) | payer MEDICARE ==
[2024-08-22 14:09] VITALS: BMI 18.2
[2024-08-23] MEDS ORDERED: PROPOFOL 20 ML ONE (10:54)
[2024-08-23] MEDS ORDERED: Lidocaine 1% PF 5 ML VIAL ONE (10:56)
[2024-08-23] MEDS ORDERED: GLYCOPYRROLATE/PF 0.2 MG/ML VIAL ONE (10:57)
[2024-08-23] MEDS ORDERED: ePHEDrine Sulfate 50 MG/10 ML VIAL ONE (11:58)
== END 2024-08-23 13:40 | disposition home or self-care (01) ==
LOC: SDC 08:44
PROVIDERS: ATTEND Internal Medicine Gastroenterology
PROC: 0DB98ZX Excision of Duodenum, Via Natural or Artificial Opening Endoscopic, Diagnostic (ICD-10-PCS; principal; 2024-08-23)
PROC: 0DB68ZX Excision of Stomach, Via Natural or Artificial Opening Endoscopic, Diagnostic (ICD-10-PCS; 2024-08-23)
PROC: 0DB18ZX Excision of Upper Esophagus, Via Natural or Artificial Opening Endoscopic, Diagnostic (ICD-10-PCS; 2024-08-23)
DX: K29.50 Unspecified chronic gastritis without bleeding (principal); K21.00 Gastro-esophageal reflux disease with esophagitis, without bleeding; K58.9 Irritable bowel syndrome, unspecified; K44.9 Diaphragmatic hernia without obstruction or gangrene; I42.9 Cardiomyopathy, unspecified; Z98.41 Cataract extraction status, right eye; Z98.42 Cataract extraction status, left eye; Z90.89 Acquired absence of other organs; Z90.710 Acquired absence of both cervix and uterus; Z88.1 Allergy status to other antibiotic agents; Z88.0 Allergy status to penicillin; Z79.899 Other long term (current) drug therapy
CPT/HCPCS: 43239; J2704; J3490; 88305; 93005; 93010